=== PATIENT | female | born 1975 | race Two or more races ===

== ENCOUNTER 2017-12-25 08:33 | Emergency (ER) | payer BC, OTHER ==
[~2017-12-25] VITALS: Ht 165.1 cm; Wt 79.5 kg
[~2017-12-25 08:33] MED LIST: BIOT1TAB PO; CETI-1 PO; LORA0.5T PO; TURM500C7 PO; VITA1TAB20 PO; [UNRECOGNIZED DRUG - CODE] PO
[2017-12-25 09:22] LABS: BASOPHILS % (AUTO) 0.2 % (0-1); EOSINOPHILS # (AUTO) 0.1 X10'3 (0-0.9); EOSINOPHILS % (AUTO) 1.1 % (0-6); HEMATOCRIT 39.9 % (35.0-45.0); HEMOGLOBIN 13.9 g/dl (12.0-16.0); LYMPHOCYTES # (AUTO) 1.1 X10'3 (1.1-4.8); LYMPHOCYTES % (AUTO) 9.1 % (21-51); MEAN CORPUSCULAR HEMOGLOBIN 30.2 PG (27.0-31.0); MEAN CORPUSCULAR HGB CONC 34.8 % (33.0-36.5); MEAN CORPUSCULAR VOLUME 86.8 FL (78-98); MONOCYTES # (AUTO) 0.2 X10'3 (0-0.9); MONOCYTES % (AUTO) 1.5 % (2-12); NEUTROPHILS # (AUTO) 10.7 X10'3 (1.8-7.7); NEUTROPHILS % (AUTO) 88.1 % (42-75); PLATELET COUNT 315 X10'3 (140-440); RED CELL DISTRIBUTION WIDTH 13.4 % (11.5-14.5); WHITE BLOOD COUNT 12.1 X10'3 (4.5-11.0)
[2017-12-25 09:36] LABS: ALBUMIN 3.9 G/DL (3.4-5.0); ALBUMIN/GLOBULIN RATIO 0.9 (1.1-1.5); ANION GAP 14 (8-16); ASPARTATE AMINO TRANSFERASE 256 U/L (10-37); BILIRUBIN,TOTAL 0.7 MG/DL (0.1-1.0); BLOOD UREA NITROGEN 17 MG/DL (7-18); BUN/CREATININE RATIO 19.3 (6.6-38.0); CALCIUM 8.9 MG/DL (8.5-10.1); CHLORIDE 100 MMOL/L (99-107); CREATININE 0.88 MG/DL (0.40-0.90); GLUCOSE 115 MG/DL (70-104); SODIUM 138 MMOL/L (135-145); TOTAL CARBON DIOXIDE 24.1 MMOL/L (24-32); TOTAL PROTEIN 8.1 G/DL (6.4-8.2); eGFR 71 ML/MIN
[2017-12-25 09:37] LABS: ALANINE AMINOTRANSFERASE 71 U/L (12-78); ALKALINE PHOSPHATASE 69 IU/L (46-116)
[2017-12-25 09:49] LABS: URINE HCG NEGATIVE (NEG)
[2017-12-25 09:50] LABS: CLARITY,URINE SLIGHTLY CLOUDY (Clear); COLOR,URINE YELLOW (Yellow); GLUCOSE, URINE NEGATIVE (Neg); KETONES,URINE >=80 mg/dl (Neg); LEUKOCYTE ESTERASE ,URINE NEGATIVE (Neg); NITRITES, URINE NEGATIVE (Neg); OCCULT BLOOD,URINE SMALL (Neg); PH,URINE 5.5 (4.8-8.0); PROTEIN,URINE NEGATIVE (Neg); UROBILINOGEN,URINE 0.2 E.U/dL (0.2-1.0)
[2017-12-25] MEDS ORDERED: normal saline 1000ML IV soln IVB ONE (09:50)
[2017-12-25 09:52] LABS: UA COLLECTION TYPE CLN CATCH MIDSTREAM
[2017-12-25 10:17] LABS: WBC,URINE 0-4 /HPF (0-4)
[2017-12-25 10:18] LABS: RBC,URINE NONE SEEN /HPF (0-2)
[2017-12-25 10:19] LABS: BACTERIA,URINE 1+ /HPF (Neg); MUCUS STRANDS MANY /LPF (Neg); SQUAMOUS EPITHELIAL CELL,UR MANY /LPF (FEW)
[2017-12-25 11:50] VITALS: BP 133/79
== END 2017-12-25 11:58 | disposition home or self-care (01) ==
LOC: ER 08:34
DX: R55 Syncope and collapse (principal); R63.8 Other symptoms and signs concerning food and fluid intake; R53.1 Weakness; R11.0 Nausea; R00.2 Palpitations; Z90.721 Acquired absence of ovaries, unilateral; Z88.5 Allergy status to narcotic agent; Z79.899 Other long term (current) drug therapy
CPT/HCPCS: 36415; 80053; 81001; 81025; 82948; 84439; 84443; 84484; 85025; 93005; 96360; 99285; J7030